=== PATIENT | male | born 1990 | race African-American/Black ===

== ENCOUNTER 2021-03-07 16:22 | Emergency (ER) | payer OTHER ==
[~2021-03-07] VITALS: Ht 162.6 cm; Wt 63.5 kg
[~2021-03-07 16:22] MED LIST: BACTRIM DS TAB1 EACH PO
[2021-03-07 16:46] VITALS: BP 184/91
[2021-03-07] MEDS ORDERED: DOXYCYCLINE 10100 MG PO (16:59)
[2021-03-07 17:24] LABS: URINE BILIRUBIN NEGATIVE (Negative); URINE BLOOD NEGATIVE (Negative); URINE CLARITY CLEAR; URINE COLOR YELLOW; URINE GLUCOSE-RANDOM* NEGATIVE (Negative); URINE KETONES NEGATIVE (Negative); URINE LEUKOCYTES-REFLEX NEGATIVE (Negative); URINE NITRITE-REFLEX NEGATIVE (Negative); URINE PROTEIN (DIPSTICK) NEGATIVE (Negative); URINE UROBILINOGEN 0.2 E.U./dl (0.2-1.0)
== END 2021-03-07 17:00 | disposition home or self-care (01) ==
LOC: ER 16:22
PROVIDERS: Nurse Practitioner
DX: Z11.3 Encounter for screening for infections with a predominantly sexual mode of transmission (principal); Z20.2 Contact with and (suspected) exposure to infections with a predominantly sexual mode of transmission; Z72.89 Other problems related to lifestyle